=== PATIENT | male | born 1945 | race Caucasian/White ===

== ENCOUNTER → 2016-03-02 | Outpatient (CLI) | payer MEDICARE, OTHER ==
[~2016-03-02] MED LIST: ADAL40KI2 SC; ASPI325T4 PO; CARI350T21 PO; CLOP75TA41 PO; COLCPOW2 PO; DICL1GEL26 TD; FLUN0.02; FLUO0.0127 OT; INSLISPI SC; LORA10CA7 PO; LORA1TAB12 PO; LOSA100T27 PO; METO25TA5 PO; NITR0.4S29 SL; OMEG100062 PO; OMEP20CA5 OR; OMEP40CA33 PO; OXY5T GT; PRAV20TA3 PO; VENL75TA PO; [UNRECOGNIZED DRUG - CODE] TOP
== END | disposition home or self-care (01) ==
LOC: Rad HDHVI 11:01
PROVIDERS: ATTEND Internal Medicine Cardiovascular Disease
DX: I10 Essential (primary) hypertension (principal); E11.9 Type 2 diabetes mellitus without complications; E78.4 Other hyperlipidemia; I21.29 ST elevation (STEMI) myocardial infarction involving other sites; Z95.5 Presence of coronary angioplasty implant and graft; E78.00 Pure hypercholesterolemia, unspecified
CPT/HCPCS: 74176

== ENCOUNTER → 2016-03-17 | Outpatient (CLI) | payer MEDICARE, OTHER ==
[~2016-03-17] VITALS: Ht 33 cm; Wt 0.5 kg
[~2016-03-17] MED LIST changes: +CYANOCOBALAMIN (B-12) 1000 MCG/1 ML VIAL IM ONE; +CYANOCOBALAMIN (B-12) 1000 MCG/1 ML VIAL ONE; +INFLUENZA QUAD 2016-2017 0.5 ML SYRG IM ONE
[2016-03-17 14:10] VITALS: BP 119/72
[2016-03-17 14:30] VITALS: BP 126/72
== END | disposition home or self-care (01) ==
LOC: CHF HDHVI 14:15
PROVIDERS: ATTEND Internal Medicine Cardiovascular Disease
DX: I11.0 Hypertensive heart disease with heart failure (principal); D64.9 Anemia, unspecified; I25.10 Atherosclerotic heart disease of native coronary artery without angina pectoris; E78.00 Pure hypercholesterolemia, unspecified; Z95.5 Presence of coronary angioplasty implant and graft
CPT/HCPCS: 96372; G0463; J3420

== ENCOUNTER → 2016-04-02 | Outpatient (CLI) | payer MEDICARE, OTHER ==
[~2016-04-02] MED LIST changes: -CYANOCOBALAMIN (B-12) 1000 MCG/1 ML VIAL IM ONE; -CYANOCOBALAMIN (B-12) 1000 MCG/1 ML VIAL ONE; -INFLUENZA QUAD 2016-2017 0.5 ML SYRG IM ONE
[2016-04-02 12:08] LABS: Basophils # (auto) 0.1 uL; Basophils % (auto) 0.8 % (0.0-2.0); DEFINITIVE VIEW TRANSMISSION; Eosinophils # (auto) 0.2 uL; Eosinophils % (auto) 2.4 % (0.0-7.0); Hematocrit 40.7 % (41.0-53.0); Hemoglobin 12.4 g/dL (13.5-17.5); Lymphocytes # (auto) 1.8 uL; Lymphocytes % (auto) 24.7 % (10.0-50.0); Mean Corpuscular Hemoglobin 28.5 pg (28.0-32.0); Mean Corpuscular Hgb Conc. 30.4 g/dL (32.0-36.0); Mean Corpuscular Volume 93.7 fL (80.0-100.0); Mean Platelet Volume 8.4 fL (7.4-10.4); Monocytes # (auto) 0.5 uL; Monocytes % (auto) 7.5 % (0.0-12.0); Neutrophils # (auto) 4.7 uL; Neutrophils % (auto) 64.6 % (37.0-80.0); Platelet Count (auto) 299 10^3/uL (140-450); Red Cell Distribution Width 17.4 % (11.6-16.0); White Blood Cell 7.3 10^3/uL (4.4-10.8)
[2016-04-02 12:27] LABS: BUN/Creatinine Ratio 21.7; Bilirubin, Total 0.3 mg/dL (0.2-1.0); Calcium 9.2 mg/dL (8.5-10.1); Potassium 4.6 mmol/L (3.5-5.1); Total Protein 7.7 g/dL (6.4-8.2)
== END | disposition home or self-care (01) ==
LOC: LAB 10:29
DX: D64.9 Anemia, unspecified (principal); I25.10 Atherosclerotic heart disease of native coronary artery without angina pectoris; I10 Essential (primary) hypertension; M25.50 Pain in unspecified joint; Z79.899 Other long term (current) drug therapy
CPT/HCPCS: 36415; 80053; 85025; 85652; 86141

== ENCOUNTER → 2016-10-25 | Outpatient (CLI) | payer MEDICARE, OTHER ==
[~2016-10-25] MED LIST changes: +CARI-316 PO; -CARI350T21 PO; -OMEP20CA5 OR; +OMEP20CA74 OR
[2016-10-25 16:26] LABS: Basophils # (auto) 0.1 uL; Basophils % (auto) 1.3 % (0.0-2.0); CONDITION Y; Eosinophils # (auto) 0.2 uL; Eosinophils % (auto) 2.6 % (0.0-7.0); Hematocrit 42.3 % (41.0-53.0); Hemoglobin 13.7 g/dL (13.5-17.5); Lymphocytes # (auto) 1.7 uL; Lymphocytes % (auto) 20.1 % (10.0-50.0); Mean Corpuscular Hemoglobin 30.1 pg (28.0-32.0); Mean Corpuscular Hgb Conc. 32.5 g/dL (32.0-36.0); Mean Corpuscular Volume 92.6 fL (80.0-100.0); Monocytes # (auto) 0.6 uL; Neutrophils # (auto) 5.8 uL; Platelet Count (auto) 291 10^3/uL (140-450); Red Cell Distribution Width 16.9 % (11.6-16.0); White Blood Cell 8.4 10^3/uL (4.4-10.8)
[2016-10-25 16:45] LABS: Albumin 4.1 g/dL (3.4-5.0); BUN/Creatinine Ratio 24.7; Bilirubin, Total 0.3 mg/dL (0.2-1.0); Calcium 9.8 mg/dL (8.5-10.1); Potassium 4.5 mmol/L (3.5-5.1); Total Protein 8.3 g/dL (6.4-8.2)
[2016-10-25 16:52] LABS: INR 0.96 (0.9-1.15); Partial Thromboplastin Time 28.2 sec (22.64-33.71); Prothrombin Time 10.5 sec (9.37-12.3)
== END | disposition home or self-care (01) ==
LOC: LAB 12:52
PROVIDERS: ATTEND Internal Medicine Cardiovascular Disease
DX: Z01.818 Encounter for other preprocedural examination (principal); I10 Essential (primary) hypertension; D64.9 Anemia, unspecified; R79.1 Abnormal coagulation profile; I25.10 Atherosclerotic heart disease of native coronary artery without angina pectoris; E11.21 Type 2 diabetes mellitus with diabetic nephropathy
CPT/HCPCS: 36415; 80053; 85025; 85610; 85730

== ENCOUNTER → 2016-12-08 | Outpatient (CLI) | payer MEDICARE, OTHER ==
[2016-12-08 15:22] LABS: Albumin 3.7 g/dL (3.4-5.0); BUN/Creatinine Ratio 28.8; Bilirubin, Total 0.3 mg/dL (0.2-1.0); Calcium 8.8 mg/dL (8.5-10.1); Potassium 4.6 mmol/L (3.5-5.1); Total Protein 7.9 g/dL (6.4-8.2)
[2016-12-08 16:33] LABS: Basophils # (auto) 0.1 uL; Basophils % (auto) 1.3 % (0.0-2.0); Eosinophils # (auto) 0.2 uL; Eosinophils % (auto) 2.8 % (0.0-7.0); Hematocrit 42.1 % (41.0-53.0); Hemoglobin 13.7 g/dL (13.5-17.5); Lymphocytes # (auto) 1.3 uL; Lymphocytes % (auto) 19.3 % (10.0-50.0); Mean Corpuscular Hemoglobin 29.7 pg (28.0-32.0); Mean Corpuscular Hgb Conc. 32.6 g/dL (32.0-36.0); Mean Corpuscular Volume 91.1 fL (80.0-100.0); Mean Platelet Volume 8.3 fL (6.9-10.8); Monocytes # (auto) 0.6 uL; Monocytes % (auto) 8.7 % (0.0-12.0); Neutrophils # (auto) 4.7 uL; Neutrophils % (auto) 67.9 % (37.0-80.0); Nucleated Red Blood Cells % 0.1 %; Platelet Count (auto) 215 10^3/uL (140-450); White Blood Cell 6.9 10^3/uL (4.4-10.8)
== END | disposition home or self-care (01) ==
LOC: LAB 14:47
DX: I10 Essential (primary) hypertension (principal); M25.50 Pain in unspecified joint; D64.9 Anemia, unspecified; M06.9 Rheumatoid arthritis, unspecified; Z79.899 Other long term (current) drug therapy
CPT/HCPCS: 36415; 80053; 85025; 85652; 86141

== ENCOUNTER → 2017-01-31 | Outpatient (CLI) | payer MEDICARE, OTHER ==
[~2017-01-31] VITALS: Ht 177.8 cm; Wt 90.3 kg
== END | disposition home or self-care (01) ==
LOC: Rad HDHVI 09:41
PROVIDERS: ATTEND Internal Medicine Cardiovascular Disease
DX: I10 Essential (primary) hypertension (principal); E11.65 Type 2 diabetes mellitus with hyperglycemia; E11.40 Type 2 diabetes mellitus with diabetic neuropathy, unspecified; M06.9 Rheumatoid arthritis, unspecified; Z79.4 Long term (current) use of insulin
CPT/HCPCS: 78452; 93017; 93306; 96374; A9500

== ENCOUNTER → 2017-05-04 | Outpatient (CLI) | payer MEDICARE, OTHER ==
[2017-05-04 16:12] LABS: Albumin 3.9 g/dL (3.4-5.0); BUN/Creatinine Ratio 18.1; Bilirubin, Total 0.3 mg/dL (0.2-1.0); Calcium 8.7 mg/dL (8.5-10.1); Potassium 4.3 mmol/L (3.5-5.1)
[2017-05-04 16:17] LABS: Basophils # (auto) 0.1 uL; Basophils % (auto) 1.7 % (0.0-2.0); Eosinophils # (auto) 0.2 uL; Eosinophils % (auto) 3.6 % (0.0-7.0); Hemoglobin 13.7 g/dL (13.5-17.5); Lymphocytes # (auto) 1.2 uL; Mean Corpuscular Hemoglobin 30.8 pg (28.0-32.0); Mean Corpuscular Hgb Conc. 32.5 g/dL (32.0-36.0); Mean Corpuscular Volume 94.8 fL (80.0-100.0); Monocytes # (auto) 0.5 uL; Neutrophils # (auto) 3.7 uL; Neutrophils % (auto) 64.7 % (37.0-80.0); Nucleated Red Blood Cells % 0.3 %; Platelet Count (auto) 208 10^3/uL (140-450); Red Blood Cells 4.43 10^6/uL (4.5-5.90); White Blood Cell 5.7 10^3/uL (4.4-10.8)
[2017-05-05 12:07] LABS: INR 0.96 (0.9-1.15); Partial Thromboplastin Time 27.8 sec (22.64-33.71); Prothrombin Time 10.5 sec (9.37-12.3)
== END | disposition home or self-care (01) ==
LOC: LAB 11:13
PROVIDERS: ATTEND Internal Medicine Cardiovascular Disease
DX: Z01.812 Encounter for preprocedural laboratory examination (principal); I10 Essential (primary) hypertension; D64.9 Anemia, unspecified; R79.1 Abnormal coagulation profile
CPT/HCPCS: 36415; 80053; 85025; 85610; 85730

== ENCOUNTER → 2017-12-09 | Outpatient (CLI) | payer MEDICARE, BC, OTHER ==
[~2017-12-09] MED LIST changes: -CARI-316 PO; +CARI350T22 PO; +LOSA-49 PO; -LOSA100T27 PO
== END | disposition home or self-care (01) ==
LOC: Rad HDHVI 12:55
PROVIDERS: ATTEND Internal Medicine Cardiovascular Disease
DX: I20.0 Unstable angina (principal); R06.02 Shortness of breath; R06.01 Orthopnea
CPT/HCPCS: 93306

== ENCOUNTER → 2017-12-12 | Outpatient (CLI) | payer MEDICARE, BC, OTHER ==
[~2017-12-12] VITALS: Ht 177.8 cm; Wt 93.0 kg
[~2017-12-12] MED LIST changes: +ADENOSINE 78 MG in GIVE UN-DILUTED 0 ML IV ONE; +ADENOSINE 90 MG/30 ML INJ IV ONE
== END | disposition home or self-care (01) ==
LOC: Rad HDHVI 13:47
PROVIDERS: ATTEND Internal Medicine Cardiovascular Disease
DX: Z23 Encounter for immunization (principal); I20.0 Unstable angina; I10 Essential (primary) hypertension; E11.9 Type 2 diabetes mellitus without complications; R06.02 Shortness of breath; R06.01 Orthopnea
CPT/HCPCS: 78452; 93005; 96374; 96375; A9500; J0153

== ENCOUNTER 2018-08-26 21:41 | Emergency (ER) | payer MEDICARE, BC, OTHER ==
[~2018-08-26] VITALS: Ht 177.8 cm; Wt 81.2 kg
[~2018-08-26 21:41] MED LIST changes: -ADENOSINE 78 MG in GIVE UN-DILUTED 0 ML IV ONE; -ADENOSINE 90 MG/30 ML INJ IV ONE
[2018-08-26 22:49] VITALS: BP 141/65
[2018-08-27] MEDS ORDERED: BACITRACIN TOP OINT 1 UD PKG TOP ONE ×2 (01:37→01:45)
[2018-08-27] MEDS ORDERED: LIDOCAINE 1% HCL (LOCAL ANESTH.) INJ 20ML MDV IJ ONE (03:30)
== END 2018-08-27 01:48 | disposition home or self-care (01) ==
LOC: ER 21:41
DX: S01.21XA Laceration without foreign body of nose, initial encounter (principal); S01.511A Laceration without foreign body of lip, initial encounter; E11.9 Type 2 diabetes mellitus without complications; I10 Essential (primary) hypertension; I25.2 Old myocardial infarction; Z79.899 Other long term (current) drug therapy; Z79.4 Long term (current) use of insulin; Z79.82 Long term (current) use of aspirin; W54.0XXA Bitten by dog, initial encounter; Y93.89 Activity, other specified; Y99.8 Other external cause status; Y92.89 Other specified places as the place of occurrence of the external cause
CPT/HCPCS: 12013

== ENCOUNTER → 2018-09-20 | Outpatient (CLI) | payer MEDICARE, BC, OTHER ==
[~2018-09-20] MED LIST changes: +LOSA-39 PO; -LOSA-49 PO
== END | disposition home or self-care (01) ==
LOC: Rad HDHVI 14:36
PROVIDERS: ATTEND Internal Medicine Cardiovascular Disease
DX: I25.10 Atherosclerotic heart disease of native coronary artery without angina pectoris (principal); J44.9 Chronic obstructive pulmonary disease, unspecified; I11.9 Hypertensive heart disease without heart failure
CPT/HCPCS: 93306

== ENCOUNTER → 2018-09-29 | Outpatient (CLI) | payer MEDICARE, BC, OTHER ==
[~2018-09-29] VITALS: Ht 177.8 cm; Wt 78.5 kg
[~2018-09-29] MED LIST changes: +ADENOSINE 66 MG in GIVE UN-DILUTED 0 ML IV ONE; +ADENOSINE 90 MG/30 ML INJ IV ONE
[2018-09-29 12:31] LABS: Prostate Specific Antigen 0.71 ng/mL (0.0-4.0)
== END | disposition home or self-care (01) ==
LOC: Rad HDHVI 07:45
PROVIDERS: ATTEND Internal Medicine Cardiovascular Disease
DX: C61 Malignant neoplasm of prostate (principal); E29.1 Testicular hypofunction; E03.9 Hypothyroidism, unspecified; K90.9 Intestinal malabsorption, unspecified
CPT/HCPCS: 36415; 78452; 82306; 82607; 84153; 84403; 84443; 93005; 96374; 96375; A9500; J0153

== ENCOUNTER → 2019-06-20 | Outpatient (CLI) | payer MEDICARE, BC, OTHER ==
[~2019-06-20] MED LIST changes: -ADENOSINE 66 MG in GIVE UN-DILUTED 0 ML IV ONE; -ADENOSINE 90 MG/30 ML INJ IV ONE
[2019-06-20 12:06] LABS: Basophils # (auto) 0.1 10 ^3/uL (0-0.2); Basophils % (auto) 1.1 % (0.0-2.0); Eosinophils # (auto) 0.1 10 ^3/uL (0-0.8); Eosinophils % (auto) 1.6 % (0.0-7.0); Hematocrit 38.6 % (41.0-53.0); Hemoglobin 12.4 g/dL (13.5-17.5); Lymphocytes # (auto) 0.9 10 ^3/uL (0.4-5.4); Lymphocytes % (auto) 11.9 % (10.0-50.0); Mean Corpuscular Hemoglobin 30.7 pg (28.0-32.0); Mean Corpuscular Hgb Conc. 32.2 g/dL (32.0-36.0); Mean Corpuscular Volume 95.5 fL (80.0-100.0); Monocytes # (auto) 0.6 10 ^3/uL (0-1.3); Monocytes % (auto) 8.5 % (0.0-12.0); Neutrophils # (auto) 5.5 10 ^3/uL (1.6-8.6); Neutrophils % (auto) 76.9 % (37.0-80.0); Platelet Count (auto) 252 10^3/uL (140-450); Red Blood Cells 4.05 10^6/uL (4.5-5.90); White Blood Cell 7.2 10^3/uL (4.4-10.8)
== END | disposition home or self-care (01) ==
LOC: LAB 09:28
PROVIDERS: ATTEND Internal Medicine Cardiovascular Disease
DX: D64.9 Anemia, unspecified (principal); D72.829 Elevated white blood cell count, unspecified
CPT/HCPCS: 36415; 85025; 85045

== ENCOUNTER → 2019-06-27 | Outpatient (CLI) | payer MEDICARE, BC, OTHER | END | disposition home or self-care (01) | LOC: LAB 15:00 | PROVIDERS: ATTEND Internal Medicine Cardiovascular Disease | DX: R19.5 Other fecal abnormalities (principal) | CPT/HCPCS: 82270 ==

== ENCOUNTER → 2019-09-18 | Outpatient (CLI) | payer MEDICARE, BC, OTHER ==
[~2019-09-18] MED LIST changes: -LORA1TAB12 PO; +LORA1TAB23 PO; -VENL75TA PO; +VENL75TA2 PO
== END | disposition home or self-care (01) ==
LOC: Rad HDHVI 10:02
PROVIDERS: ATTEND Internal Medicine Cardiovascular Disease
DX: I50.43 Acute on chronic combined systolic (congestive) and diastolic (congestive) heart failure (principal); I25.10 Atherosclerotic heart disease of native coronary artery without angina pectoris; R00.1 Bradycardia, unspecified
CPT/HCPCS: 93306

== ENCOUNTER → 2019-10-01 | Outpatient (CLI) | payer MEDICARE, BC, OTHER ==
[~2019-10-01] VITALS: Ht 177.8 cm; Wt 79.8 kg
[~2019-10-01] MED LIST changes: +ADENOSINE 67 MG in GIVE UN-DILUTED 0 ML IV ONE; +ADENOSINE 90 MG/30 ML INJ IV ONE
== END | disposition home or self-care (01) ==
LOC: Rad HDHVI 08:46
PROVIDERS: ATTEND Internal Medicine Cardiovascular Disease
DX: I25.10 Atherosclerotic heart disease of native coronary artery without angina pectoris (principal); I10 Essential (primary) hypertension; E78.00 Pure hypercholesterolemia, unspecified; E11.9 Type 2 diabetes mellitus without complications; R07.9 Chest pain, unspecified; I25.2 Old myocardial infarction; Z82.49 Family history of ischemic heart disease and other diseases of the circulatory system
CPT/HCPCS: 78452; 93005; 96374; 96375; A9500; J0153

== ENCOUNTER → 2019-10-19 | Outpatient (CLI) | payer MEDICARE, BC, OTHER ==
[~2019-10-19] MED LIST changes: -ADENOSINE 67 MG in GIVE UN-DILUTED 0 ML IV ONE; -ADENOSINE 90 MG/30 ML INJ IV ONE
[2019-10-19 12:01] LABS: BUN/Creatinine Ratio 21.8; Calcium 9.2 mg/dL (8.5-10.1); Potassium 3.4 mmol/L (3.5-5.1)
== END | disposition home or self-care (01) ==
LOC: LAB 09:21
PROVIDERS: ATTEND Internal Medicine Cardiovascular Disease
DX: I10 Essential (primary) hypertension (principal)
CPT/HCPCS: 36415; 80048

== ENCOUNTER → 2020-03-12 | Outpatient (CLI) | payer MEDICARE, BC, OTHER ==
[~2020-03-12] MED LIST changes: -CLOP75TA41 PO; +CLOP75TA70 PO; +VENL1TAB99 PO; -VENL75TA2 PO
== END | disposition home or self-care (01) ==
LOC: Rad HDHVI 13:06
PROVIDERS: ATTEND Internal Medicine Cardiovascular Disease
DX: M47.817 Spondylosis without myelopathy or radiculopathy, lumbosacral region (principal); M51.37 Other intervertebral disc degeneration, lumbosacral region; M25.78 Osteophyte, vertebrae; I70.0 Atherosclerosis of aorta; M54.5 Low back pain
CPT/HCPCS: 72100

== ENCOUNTER → 2020-04-29 | Outpatient (CLI) | payer MEDICARE, BC, OTHER ==
[~2020-04-29] MED LIST changes: -VENL1TAB99 PO; +VENL75TA2 PO
== END | disposition home or self-care (01) ==
LOC: Rad HDHVI 08:53
PROVIDERS: ATTEND Internal Medicine Cardiovascular Disease
DX: M16.12 Unilateral primary osteoarthritis, left hip (principal); M25.752 Osteophyte, left hip
CPT/HCPCS: 73700

== ENCOUNTER → 2020-08-06 | Outpatient (CLI) | payer MEDICARE, BC, OTHER ==
[~2020-08-06] MED LIST changes: +VENL1TAB99 PO; -VENL75TA2 PO
[2020-08-06 12:02] LABS: Basophils # (auto) 0.1 10 ^3/uL (0-0.2); Basophils % (auto) 1.1 % (0.0-2.0); Eosinophils # (auto) 0.3 10 ^3/uL (0-0.8); Eosinophils % (auto) 4.5 % (0.0-7.0); Hematocrit 34.7 % (41.0-53.0); Hemoglobin 11.4 g/dL (13.5-17.5); Lymphocytes # (auto) 1.1 10 ^3/uL (0.4-5.4); Lymphocytes % (auto) 15.2 % (10.0-50.0); Mean Corpuscular Hemoglobin 32.2 pg (28.0-32.0); Mean Corpuscular Hgb Conc. 32.8 g/dL (32.0-36.0); Mean Corpuscular Volume 98.2 fL (80.0-100.0); Monocytes # (auto) 0.8 10 ^3/uL (0-1.3); Monocytes % (auto) 11.1 % (0.0-12.0); Neutrophils # (auto) 4.8 10 ^3/uL (1.6-8.6); Neutrophils % (auto) 68.1 % (37.0-80.0); Nucleated Red Blood Cells % 0.1 %; Platelet Count (auto) 276 10^3/uL (140-450); Red Blood Cells 3.54 10^6/uL (4.5-5.90); Red Cell Distribution Width 17.2 % (11.8-14.3); White Blood Cell 7.1 10^3/uL (4.4-10.8)
== END | disposition home or self-care (01) ==
LOC: LAB 09:20
PROVIDERS: ATTEND Internal Medicine Cardiovascular Disease
DX: D64.9 Anemia, unspecified (principal)
CPT/HCPCS: 36415; 85025; 85049

== ENCOUNTER → 2020-09-22 | Outpatient (CLI) | payer MEDICARE, BC, OTHER ==
[2020-09-22 15:24] LABS: Basophils # (auto) 0.1 10 ^3/uL (0-0.2); Basophils % (auto) 1.3 % (0.0-2.0); Eosinophils # (auto) 0.2 10 ^3/uL (0-0.8); Hematocrit 41.2 % (41.0-53.0); Hemoglobin 13.7 g/dL (13.5-17.5); Lymphocytes # (auto) 1.1 10 ^3/uL (0.4-5.4); Lymphocytes % (auto) 21.5 % (10.0-50.0); Mean Corpuscular Hgb Conc. 33.1 g/dL (32.0-36.0); Mean Corpuscular Volume 96.5 fL (80.0-100.0); Monocytes # (auto) 0.5 10 ^3/uL (0-1.3); Monocytes % (auto) 8.8 % (0.0-12.0); Neutrophils # (auto) 3.5 10 ^3/uL (1.6-8.6); Neutrophils % (auto) 65.4 % (37.0-80.0); Red Blood Cells 4.27 10^6/uL (4.5-5.90); Red Cell Distribution Width 16.5 % (11.8-14.3); White Blood Cell 5.3 10^3/uL (4.4-10.8)
[2020-09-22 15:35] LABS: BUN/Creatinine Ratio 23.6; Calcium 10.2 mg/dL (8.5-10.1); Potassium 5.3 mmol/L (3.5-5.1)
[2020-09-22 15:37] LABS: % Iron Saturation 36.7 % (20-55); Bilirubin, Total 0.5 mg/dL (0.2-1.0); Total Protein 8.2 g/dL (6.4-8.2)
== END | disposition home or self-care (01) ==
LOC: LAB 13:01
PROVIDERS: ATTEND Internal Medicine Cardiovascular Disease
DX: E61.1 Iron deficiency (principal); I10 Essential (primary) hypertension; D64.9 Anemia, unspecified
CPT/HCPCS: 36415; 80053; 83540; 83550; 85025

== ENCOUNTER → 2021-03-25 | Outpatient (CLI) | payer MEDICARE, BC, OTHER | END | disposition home or self-care (01) | LOC: Rad HDHVI 10:33 | PROVIDERS: ATTEND Internal Medicine Cardiovascular Disease | DX: R07.81 Pleurodynia (principal) | CPT/HCPCS: 71101 ==

== ENCOUNTER → 2021-10-05 | Outpatient (CLI) | payer MEDICARE, BC, OTHER | END | disposition home or self-care (01) | LOC: Rad HDHVI 11:08 | PROVIDERS: ATTEND Internal Medicine Cardiovascular Disease | DX: I34.0 Nonrheumatic mitral (valve) insufficiency (principal); R06.02 Shortness of breath | CPT/HCPCS: 93306 ==

== ENCOUNTER → 2021-10-16 | Outpatient (CLI) | payer MEDICARE, BC, OTHER ==
[~2021-10-16] VITALS: Ht 177.8 cm; Wt 83.9 kg
[~2021-10-16] MED LIST changes: +ADENOSINE 70 MG in GIVE UN-DILUTED 0 ML IV ONE; +ADENOSINE 90 MG/30 ML INJ IV ONE
== END | disposition home or self-care (01) ==
LOC: Rad HDHVI 07:58
PROVIDERS: ATTEND Internal Medicine Cardiovascular Disease
DX: I10 Essential (primary) hypertension (principal); R07.9 Chest pain, unspecified; I25.10 Atherosclerotic heart disease of native coronary artery without angina pectoris; I25.2 Old myocardial infarction; E78.5 Hyperlipidemia, unspecified; R42 Dizziness and giddiness; R06.02 Shortness of breath; Z82.49 Family history of ischemic heart disease and other diseases of the circulatory system
CPT/HCPCS: 78452; 93005; 96374; 96375; A9500; J0153

== ENCOUNTER → 2021-10-30 | Outpatient (CLI) | payer MEDICARE, BC, OTHER ==
[~2021-10-30] MED LIST changes: -ADENOSINE 70 MG in GIVE UN-DILUTED 0 ML IV ONE; -ADENOSINE 90 MG/30 ML INJ IV ONE
[2021-10-30 09:46] LABS: Basophils # (auto) 0.1 10 ^3/uL (0-0.2); Basophils % (auto) 1.5 % (0.0-2.0); Eosinophils # (auto) 0.2 10 ^3/uL (0-0.8); Eosinophils % (auto) 4.4 % (0.0-7.0); Hematocrit 39.1 % (41.0-53.0); Hemoglobin 12.4 g/dL (13.5-17.5); Lymphocytes # (auto) 0.9 10 ^3/uL (0.4-5.4); Lymphocytes % (auto) 17.3 % (10.0-50.0); Mean Corpuscular Hemoglobin 30.3 pg (28.0-32.0); Mean Corpuscular Hgb Conc. 31.7 g/dL (32.0-36.0); Mean Corpuscular Volume 95.7 fL (80.0-100.0); Monocytes # (auto) 0.5 10 ^3/uL (0-1.3); Monocytes % (auto) 9.2 % (0.0-12.0); Neutrophils # (auto) 3.5 10 ^3/uL (1.6-8.6); Neutrophils % (auto) 67.6 % (37.0-80.0); Nucleated Red Blood Cells % 0.1 %; Red Blood Cells 4.09 10^6/uL (4.5-5.90); White Blood Cell 5.1 10^3/uL (4.4-10.8)
[2021-10-30 09:54] LABS: Urine Blood Negative /uL (Negative); Urine Specific Gravity 1.025 (1.001-1.035)
[2021-10-30 09:55] LABS: Potassium 4.9 mmol/L (3.5-5.1)
[2021-10-30 10:04] LABS: Albumin 3.7 g/dL (3.4-5.0); BUN/Creatinine Ratio 17.2; Bilirubin, Total 0.3 mg/dL (0.2-1.0); Calcium 9.4 mg/dL (8.5-10.1); Total Protein 7.6 g/dL (6.4-8.2)
[2021-10-30 10:07] LABS: Prostate Specific Antigen 0.52 ng/mL (0.0-4.0)
== END | disposition home or self-care (01) ==
LOC: LAB 08:19
PROVIDERS: ATTEND Internal Medicine Cardiovascular Disease
DX: C61 Malignant neoplasm of prostate (principal); D51.3 Other dietary vitamin B12 deficiency anemia; E55.9 Vitamin D deficiency, unspecified; I11.0 Hypertensive heart disease with heart failure; I50.23 Acute on chronic systolic (congestive) heart failure; D64.9 Anemia, unspecified; E11.9 Type 2 diabetes mellitus without complications; R00.2 Palpitations; R53.1 Weakness; R30.0 Dysuria
CPT/HCPCS: 36415; 80053; 80061; 81003; 82306; 82607; 83036; 83880; 84153; 84403; 84439; 84443; 85025

== ENCOUNTER → 2022-03-17 | Outpatient (CLI) | payer MEDICARE, BC, OTHER ==
[2022-03-17 11:54] LABS: Basophils # (auto) 0.1 10 ^3/uL (0-0.2); Basophils % (auto) 1.3 % (0.0-2.0); Eosinophils # (auto) 0.2 10 ^3/uL (0-0.8); Eosinophils % (auto) 3.1 % (0.0-7.0); Hematocrit 30.7 % (41.0-53.0); Hemoglobin 10.1 g/dL (13.5-17.5); Lymphocytes # (auto) 0.8 10 ^3/uL (0.4-5.4); Lymphocytes % (auto) 13.9 % (10.0-50.0); Mean Corpuscular Hemoglobin 30.7 pg (28.0-32.0); Mean Corpuscular Hgb Conc. 32.9 g/dL (32.0-36.0); Mean Corpuscular Volume 93.4 fL (80.0-100.0); Monocytes # (auto) 0.5 10 ^3/uL (0-1.3); Neutrophils # (auto) 4.1 10 ^3/uL (1.6-8.6); Neutrophils % (auto) 72.7 % (37.0-80.0); Nucleated Red Blood Cells % 0.1 %; Red Blood Cells 3.29 10^6/uL (4.5-5.90); Red Cell Distribution Width 18.9 % (11.8-14.3); White Blood Cell 5.6 10^3/uL (4.4-10.8)
[2022-03-17 12:06] LABS: Calcium 9.1 mg/dL (8.5-10.1); Potassium 5.3 mmol/L (3.5-5.1)
== END | disposition home or self-care (01) ==
LOC: LAB 10:29
PROVIDERS: ATTEND Internal Medicine Cardiovascular Disease
DX: I10 Essential (primary) hypertension (principal)
CPT/HCPCS: 36415; 80048; 85025

== ENCOUNTER → 2022-04-09 | Outpatient (CLI) | payer MEDICARE, BC, OTHER ==
[~2022-04-09] MED LIST changes: +IOHEXOL 350 MG/ML 100ML IJ ONE
[2022-04-09 09:45] VITALS: BP 117/73
[2022-04-09 10:06] VITALS: BP 134/62
== END | disposition home or self-care (01) ==
LOC: Rad HDHVI 09:30
PROVIDERS: ATTEND Internal Medicine Cardiovascular Disease
DX: J44.0 Chronic obstructive pulmonary disease with (acute) lower respiratory infection (principal); R06.02 Shortness of breath; K56.41 Fecal impaction; R63.4 Abnormal weight loss
CPT/HCPCS: 71260; G0463; Q9967

== ENCOUNTER → 2022-09-21 | Outpatient (CLI) | payer MEDICARE, BC, OTHER ==
[~2022-09-21] MED LIST changes: -CARI350T22 PO; +CARI350T27 PO; -IOHEXOL 350 MG/ML 100ML IJ ONE; +LORA-1123 PO; +LORA10CA PO; -LORA10CA7 PO; -LORA1TAB23 PO; -LOSA-39 PO; +LOSA100T58 PO
== END | disposition home or self-care (01) ==
LOC: Rad HDHVI 09:25
PROVIDERS: ATTEND Internal Medicine Cardiovascular Disease
DX: I10 Essential (primary) hypertension (principal); E78.5 Hyperlipidemia, unspecified
CPT/HCPCS: 93306

== ENCOUNTER → 2022-09-29 | Outpatient (CLI) | payer MEDICARE, BC, OTHER | END | disposition home or self-care (01) | LOC: Rad HDHVI 09:30 | PROVIDERS: ATTEND Internal Medicine Cardiovascular Disease | DX: I10 Essential (primary) hypertension (principal) | CPT/HCPCS: 93880 ==

== ENCOUNTER → 2022-10-04 | Outpatient (CLI) | payer MEDICARE, BC, OTHER ==
[~2022-10-04] VITALS: Ht 177.8 cm; Wt 83.5 kg
[~2022-10-04] MED LIST changes: +ADENOSINE 70 MG in GIVE UN-DILUTED 0 ML IV ONE; +ADENOSINE 90 MG/30 ML INJ IV ONE
== END | disposition home or self-care (01) ==
LOC: Rad HDHVI 09:35
PROVIDERS: ATTEND Internal Medicine Cardiovascular Disease
DX: I11.0 Hypertensive heart disease with heart failure (principal); I50.43 Acute on chronic combined systolic (congestive) and diastolic (congestive) heart failure; E11.21 Type 2 diabetes mellitus with diabetic nephropathy; R07.9 Chest pain, unspecified; I25.10 Atherosclerotic heart disease of native coronary artery without angina pectoris; E78.00 Pure hypercholesterolemia, unspecified; I25.5 Ischemic cardiomyopathy; Z82.49 Family history of ischemic heart disease and other diseases of the circulatory system
CPT/HCPCS: 78452; 93005; 96374; 96375; A9500; J0153

== ENCOUNTER → 2023-03-23 | Outpatient (CLI) | payer MEDICARE, BC, OTHER ==
[~2023-03-23] MED LIST changes: -ADENOSINE 70 MG in GIVE UN-DILUTED 0 ML IV ONE; -ADENOSINE 90 MG/30 ML INJ IV ONE
== END | disposition home or self-care (01) ==
LOC: Rad HDHVI 10:09
PROVIDERS: ATTEND Internal Medicine Cardiovascular Disease
DX: I08.1 Rheumatic disorders of both mitral and tricuspid valves (principal); I11.9 Hypertensive heart disease without heart failure
CPT/HCPCS: 93306

== ENCOUNTER 2023-07-14 10:37 | Inpatient (IN) | payer MEDICARE, BC, OTHER ==
[~2023-07-14] VITALS: Ht 177.8 cm; Wt 80.8 kg
[~2023-07-14 10:37] MED LIST changes: -ASPI325T4 PO; +ASPI325T6 PO; +CARI-578 PO; -CARI350T27 PO; +LOSA-535 PO; -LOSA100T58 PO
[2023-07-14 11:31] LABS: Basophils # (auto) 0.1 10 ^3/uL (0-0.2); Basophils % (auto) 1.8 % (0.0-2.0); Eosinophils # (auto) 0.2 10 ^3/uL (0-0.8); Eosinophils % (auto) 3.2 % (0.0-7.0); Hematocrit 34.2 % (41.0-53.0); Hemoglobin 11.2 g/dL (13.5-17.5); Lymphocytes # (auto) 1.3 10 ^3/uL (0.4-5.4); Lymphocytes % (auto) 23.6 % (10.0-50.0); Mean Corpuscular Hemoglobin 30.3 pg (28.0-32.0); Mean Corpuscular Hgb Conc. 32.6 g/dL (32.0-36.0); Mean Corpuscular Volume 92.7 fL (80.0-100.0); Monocytes # (auto) 0.4 10 ^3/uL (0-1.3); Monocytes % (auto) 6.7 % (0.0-12.0); Neutrophils # (auto) 3.6 10 ^3/uL (1.6-8.6); Neutrophils % (auto) 64.7 % (37.0-80.0); Nucleated Red Blood Cells % 0.1 %; Red Blood Cells 3.69 10^6/uL (4.5-5.90); Red Cell Distribution Width 14.2 % (11.8-14.3); White Blood Cell 5.6 10^3/uL (4.4-10.8)
[2023-07-14 11:45] LABS: Alanine Aminotransferase 17 U/L (7-40); Albumin 4.6 g/dL (3.2-4.8); Alkaline Phosphatase 55 U/L (46-116); Anion Gap 7 (5-15); Aspartate Aminotransferase < 8 U/L (13-40); BUN/Creatinine Ratio 46.2 (10.0-20.0); Bilirubin, Total 0.3 mg/dL (0.2-1.0); Calcium 10.6 mg/dL (8.5-10.1); Carbon Dioxide 23 mmol/L (20-30); Chloride 103 mmol/L (98-107); Glucose 141 mg/dL (74-106); Potassium 5.4 mmol/L (3.5-5.1); Sodium 133 mmol/L (136-145); Total Protein 7.5 g/dL (5.7-8.2)
[2023-07-14 12:18] LABS: Blood Urea Nitrogen 91 mg/dL (9-23)
[2023-07-14] MEDS ORDERED: MORPHINE SULFATE INJ 2 MG/ml SYRG IV PRN (14:30)
[2023-07-14] MEDS ORDERED: ONDANSETRON HCL 4 MG/2 ML VIAL IV PRN (14:30)
[2023-07-14] MEDS ORDERED: NITROGLYCERIN 0.4 MG SL TAB SL PRN (14:30)
[2023-07-14] MEDS ORDERED: ACETAMINOPHEN 325 MG TAB PO PRN (14:30)
[2023-07-14] MEDS ORDERED: GABA-1250 PO (14:41)
[2023-07-14] MEDS ORDERED: BUPR300T28 PO (14:41)
[2023-07-14] MEDS ORDERED: GLIP-110 PO (14:41)
[2023-07-14] MEDS ORDERED: RANO500T3 PO (14:41)
[2023-07-14] MEDS ORDERED: HYDR25TA5 PO (14:41)
[2023-07-14] MEDS ORDERED: LISI20TA56 PO (14:41)
[2023-07-14] MEDS ORDERED: AMLO1TAB22 PO (14:41)
[2023-07-14] MEDS ORDERED: ALLO100T PO (14:45)
[2023-07-14] MEDS ORDERED: ATOR20TA PO (14:45)
[2023-07-14] MEDS ORDERED: MET50T GT (14:45)
[2023-07-14] MEDS: ASPirin 325 MG TAB PO SCH (17:06)
[2023-07-14] MEDS: SODIUM CHLORIDE 0.9% 2,000 ML IV ONE (17:07)
[2023-07-14] MEDS ORDERED: TRAZ1TAB12 PO (18:22)
[2023-07-14] MEDS ORDERED: LORA-1105 PO (18:22)
[2023-07-14] MEDS ORDERED: DEXTROSE (50%) 50ML SYRG IV PRN (20:15)
[2023-07-14] MEDS ORDERED: LISINOPRIL 20 MG TAB PO SCH (22:00)
[2023-07-14] MEDS ORDERED: METOPROLOL TARTRATE 50 MG TAB GT SCH (22:00)
[2023-07-14 23:26] VITALS: BP 118/50; PULSE 60; RESP 18; TEMP 97.7; O2SAT 97
[2023-07-14] MEDS: ATORVASTATIN 20 MG TAB PO SCH (23:26)
[2023-07-14] MEDS: ACCU-CHEK COMFORT CURVE STRIP VI SCH (23:26)
[2023-07-14] MEDS: ALLOPURINOL 100 MG TAB PO SCH (23:26)
[2023-07-14] MEDS: RANOLAZINE ER 500 MG TAB PO SCH (23:27)
[2023-07-14] MEDS: traZODone HCL 50 MG TAB PO SCH (23:27)
[2023-07-14] MEDS: GABAPENTIN 300 MG CAP PO SCH (23:27)
[2023-07-14] MEDS: SODIUM CHLOR 0.9% PF (SALINE LOCK) 10ML VIAL/SYR IV SCH (23:27)
[2023-07-14 23:30] VITALS: BP 118/50; PULSE 60; RESP 18; TEMP 97.7; O2SAT 97
[2023-07-15] VITALS (7 sets, daily range): BP systolic 96–119; BP diastolic 58–67; PULSE 57–76; RESP 17–19; TEMP 97.5–98; O2SAT 96–99
[2023-07-15] MEDS: HYDROcodone-ACET 5/325MG TAB PO PRN (00:21)
[2023-07-15] MEDS: InsuLIN REG 1unit/0.01ml Soln (100units/ml) SC SCH ×2 (00:22→06:07)
[2023-07-15 07:30] LABS: Basophils # (auto) 0.1 10 ^3/uL (0-0.2); Basophils % (auto) 1.3 % (0.0-2.0); Eosinophils # (auto) 0.2 10 ^3/uL (0-0.8); Hematocrit 32.6 % (41.0-53.0); Hemoglobin 10.7 g/dL (13.5-17.5); Lymphocytes # (auto) 1.6 10 ^3/uL (0.4-5.4); Lymphocytes % (auto) 29.2 % (10.0-50.0); Mean Corpuscular Hemoglobin 30.1 pg (28.0-32.0); Mean Corpuscular Hgb Conc. 32.8 g/dL (32.0-36.0); Mean Corpuscular Volume 91.9 fL (80.0-100.0); Monocytes # (auto) 0.5 10 ^3/uL (0-1.3); Monocytes % (auto) 9.6 % (0.0-12.0); Neutrophils % (auto) 55.9 % (37.0-80.0); Red Blood Cells 3.54 10^6/uL (4.5-5.90); Red Cell Distribution Width 13.9 % (11.8-14.3); White Blood Cell 5.4 10^3/uL (4.4-10.8)
[2023-07-15 07:50] LABS: Alanine Aminotransferase 13 U/L (7-40); Albumin 4.3 g/dL (3.2-4.8); Alkaline Phosphatase 48 U/L (46-116); Anion Gap 5 (5-15); Aspartate Aminotransferase 9 U/L (13-40); BUN/Creatinine Ratio 36.4 (10.0-20.0); Bilirubin, Total 0.2 mg/dL (0.2-1.0); Calcium 10.1 mg/dL (8.7-10.4); Carbon Dioxide 26 mmol/L (20-30); Chloride 108 mmol/L (98-107); Glucose 107 mg/dL (74-106); Potassium 4.7 mmol/L (3.5-5.1); Sodium 139 mmol/L (136-145); Total Protein 7.3 g/dL (5.7-8.2)
[2023-07-15 07:51] LABS: Blood Urea Nitrogen 59 mg/dL (9-23)
[2023-07-15 07:52] LABS: CRP High Sensitivity 0.14 mg/dL (<1.0); Magnesium 1.8 mg/dL (1.6-2.6)
[2023-07-15 08:57] LABS: INR 1.06 (0.9-1.15); Partial Thromboplastin Time 26.4 SEC (24.5-34.5); Prothrombin Time 11.2 sec (9.3-11.8)
[2023-07-15 08:58] LABS: % Iron Saturation 25.3 % (20-55)
[2023-07-15 09:04] LABS: Ferritin 412.7 ng/mL (22-322)
[2023-07-15 09:18] LABS: Folate (Folic Acid) 43.83 ng/mL (>5.38)
[2023-07-15] MEDS: CLOPIDOGREL BISULFATE 75 MG TAB PO SCH (09:52)
[2023-07-15] MEDS ORDERED: GLIPIZIDE 5 MG PO SCH (10:00)
[2023-07-15] MEDS ORDERED: amLODIPine BESYLATE 5 MG TAB PO SCH (10:00)
[2023-07-15] MEDS ORDERED: ASPirin 325 MG TAB PO SCH (10:00)
[2023-07-15] MEDS: BUPROPION HCL 300 MG PO SCH (10:00)
[2023-07-15] MEDS ORDERED: hydroCHLOROthiazide 25 MG TAB PO SCH (10:00)
[2023-07-15] MEDS: SODIUM CHLORIDE 0.9% 1,000 ML IV SCH (10:02)
[2023-07-15] MEDS: ASPirin 325 MG TAB PO SCH (10:02)
[2023-07-15 14:26] LABS: Urine Bacteria None Seen /hpf (None Seen); Urine WBC None Seen /hpf (0 - 3)
[2023-07-15 14:35] LABS: Urine Blood Negative /uL (Negative); Urine Clarity Clear (Clear); Urine Color Light-Yellow (Yellow); Urine Protein, UAD Negative (Negative); Urine Specific Gravity 1.014 (1.001-1.035); Urine Urobilinogen Normal (Negative)
[2023-07-15 14:45] LABS: Amphetamine Screen, Urine Neg (NEGATIVE); Barbiturate Scree,Urine Neg (NEGATIVE); Benzodiazephine Screen, Urine Neg (NEGATIVE); Cannabinoid Screen, Urine Neg (NEGATIVE); Cocaine Screen, Urine Neg (NEGATIVE); Opiate Scree,Urine Neg (NEGATIVE); Phencyclidine Screen, Urine Neg (NEGATIVE)
[2023-07-15] MEDS: DOCUSATE SOD 100 MG CAP PO PRN (21:48)
[2023-07-15] MEDS: LORazepam 0.5 MG TAB PO PRN (21:48)
[2023-07-16 01:00] VITALS: BP 98/60; PULSE 61; RESP 17; TEMP 97; O2SAT 93
[2023-07-16 05:00] VITALS: BP 105/63; PULSE 61; RESP 19; TEMP 97.9; O2SAT 96
[2023-07-16 06:56] LABS: Basophils # (auto) 0.1 10 ^3/uL (0-0.2); Basophils % (auto) 1.2 % (0.0-2.0); Eosinophils # (auto) 0.2 10 ^3/uL (0-0.8); Eosinophils % (auto) 3.4 % (0.0-7.0); Hematocrit 30.9 % (41.0-53.0); Hemoglobin 10.1 g/dL (13.5-17.5); Lymphocytes # (auto) 1.5 10 ^3/uL (0.4-5.4); Mean Corpuscular Hemoglobin 29.9 pg (28.0-32.0); Mean Corpuscular Hgb Conc. 32.8 g/dL (32.0-36.0); Mean Corpuscular Volume 91.3 fL (80.0-100.0); Monocytes # (auto) 0.4 10 ^3/uL (0-1.3); Monocytes % (auto) 8.1 % (0.0-12.0); Neutrophils # (auto) 3.2 10 ^3/uL (1.6-8.6); Neutrophils % (auto) 59.3 % (37.0-80.0); Red Blood Cells 3.38 10^6/uL (4.5-5.90); Red Cell Distribution Width 13.8 % (11.8-14.3); White Blood Cell 5.3 10^3/uL (4.4-10.8)
[2023-07-16 07:12] LABS: Alanine Aminotransferase 14 U/L (7-40); Albumin 3.9 g/dL (3.2-4.8); Alkaline Phosphatase 43 U/L (46-116); Anion Gap 3 (5-15); Aspartate Aminotransferase < 8 U/L (13-40); BUN/Creatinine Ratio 31.7 (10.0-20.0); Bilirubin, Total 0.3 mg/dL (0.2-1.0); Calcium 9.4 mg/dL (8.5-10.1); Carbon Dioxide 26 mmol/L (20-30); Chloride 111 mmol/L (98-107); Glucose 121 mg/dL (74-106); Magnesium 1.7 mg/dL (1.6-2.6); Potassium 4.6 mmol/L (3.5-5.1); Sodium 140 mmol/L (136-145); Total Protein 6.6 g/dL (5.7-8.2)
[2023-07-16 07:25] LABS: Blood Urea Nitrogen 38 mg/dL (9-23)
[2023-07-16 08:00] VITALS: PULSE 72; RESP 18; O2SAT 96
[2023-07-16 08:53] VITALS: BP 100/59; PULSE 61; RESP 19; TEMP 97.5; O2SAT 96
[2023-07-16 12:35] VITALS: BP 110/58; PULSE 69; RESP 19; TEMP 97.7; O2SAT 98
[2023-07-16] MEDS ORDERED: ASPI-325 PO (13:47)
[2023-07-16 14:47] VITALS: BP 110/58; PULSE 69; RESP 19; TEMP 97.7; O2SAT 98
[2023-07-17] MEDS ORDERED: ASPirin 81 mg TAB PO SCH (10:00)
[2023-07-18 09:13] LABS: Hepatitis B Surface Antigen Negative (Negative)
[2023-07-18 09:35] LABS: Hepatitis C Antibody Negative (Negative)
== END 2023-07-16 16:29 | disposition home or self-care (01) | DRG 682 ==
LOC: ER 10:37 → TELE-WESTW 14:30 → TELE 14:30 → TELE-WESTW 23:11
PROVIDERS: ADMIT Internal Medicine; ATTEND Internal Medicine
DX: N17.0 Acute kidney failure with tubular necrosis (principal); G93.41 Metabolic encephalopathy; I13.0 Hypertensive heart and chronic kidney disease with heart failure and stage 1 through stage 4 chronic kidney disease, or unspecified chronic kidney disease; N18.9 Chronic kidney disease, unspecified; E87.5 Hyperkalemia; E78.5 Hyperlipidemia, unspecified; E11.22 Type 2 diabetes mellitus with diabetic chronic kidney disease; R47.1 Dysarthria and anarthria; N28.1 Cyst of kidney, acquired; I25.10 Atherosclerotic heart disease of native coronary artery without angina pectoris; D63.8 Anemia in other chronic diseases classified elsewhere; E83.52 Hypercalcemia; G89.29 Other chronic pain; I50.9 Heart failure, unspecified; E11.40 Type 2 diabetes mellitus with diabetic neuropathy, unspecified; Z96.651 Presence of right artificial knee joint; Z79.4 Long term (current) use of insulin; I25.2 Old myocardial infarction; Z95.5 Presence of coronary angioplasty implant and graft; Z82.49 Family history of ischemic heart disease and other diseases of the circulatory system; Z83.3 Family history of diabetes mellitus; Z80.1 Family history of malignant neoplasm of trachea, bronchus and lung; D63.1 Anemia in chronic kidney disease
CPT/HCPCS: 36415; 70450; 71045; 76775; 80053; 80061; 80307; 81001; 82306; 82607; 82728; 82746; 82962; 83036; 83540; 83550; 83605; 83735; 83880; 84443; 84484; 85025; 85379; 85610; 85730; 86141; 86803; 87040; 87340; 93005; 93886; 93970; 96360; G0378; J1815

== ENCOUNTER 2024-08-27 07:58 | Outpatient (CLI) | payer MEDICARE, BC, OTHER ==
[~2024-08-27] VITALS: Ht 177.8 cm; Wt 82.6 kg
[~2024-08-27 07:58] MED LIST changes: +ALLO100T PO; +ASPI-325 PO; -ASPI325T6 PO; +ATOR20TA PO; +BUPR-581 PO; -COLCPOW2 PO; -DICL1GEL26 TD; +GABA-1250 PO; +GLIP-110 PO; +LORA-1105 PO; -LORA-1123 PO; -LOSA-535 PO; -METO25TA5 PO; -OMEP40CA33 PO; -PRAV20TA3 PO; +RANO500T3 PO; +TRAZ1TAB12 PO; -VENL1TAB99 PO; -[UNRECOGNIZED DRUG - CODE] TOP
[2024-08-27] MEDS ORDERED: ADENOSINE 90 MG/30 ML INJ IV ONE (08:51)
[2024-08-27] MEDS ORDERED: ADENOSINE 69 MG in GIVE UN-DILUTED 0 ML IV ONE (09:00)
== END 2024-08-27 17:00 | disposition home or self-care (01) ==
LOC: Rad HDHVI 07:58
PROVIDERS: ATTEND Internal Medicine Cardiovascular Disease
DX: I49.1 Atrial premature depolarization (principal); I25.10 Atherosclerotic heart disease of native coronary artery without angina pectoris; I11.0 Hypertensive heart disease with heart failure; I50.43 Acute on chronic combined systolic (congestive) and diastolic (congestive) heart failure; E78.00 Pure hypercholesterolemia, unspecified; E11.21 Type 2 diabetes mellitus with diabetic nephropathy; I42.0 Dilated cardiomyopathy; I25.2 Old myocardial infarction; I25.5 Ischemic cardiomyopathy; Z79.82 Long term (current) use of aspirin; Z82.49 Family history of ischemic heart disease and other diseases of the circulatory system
CPT/HCPCS: 78452; 93017; A9500; J0153

== ENCOUNTER 2024-08-28 07:59 | Outpatient (CLI) | payer MEDICARE, BC, OTHER | END 2024-08-28 17:00 | disposition home or self-care (01) | LOC: Rad HDHVI 07:59 | PROVIDERS: ATTEND Internal Medicine Cardiovascular Disease | DX: I35.8 Other nonrheumatic aortic valve disorders (principal); I10 Essential (primary) hypertension; R00.2 Palpitations | CPT/HCPCS: 93306 ==